=== PATIENT | male | born 1965 | race African-American/Black ===

== ENCOUNTER 2017-02-04 13:01 | Emergency (ER) | payer MEDICAID, OTHER ==
[~2017-02-04] VITALS: Ht 172.7 cm; Wt 75.0 kg
[2017-02-04] MEDS ORDERED: NITROGLYCERIN 0.4MG TABLET SL SL PRN (13:30)
[2017-02-04] MEDS ORDERED: ASPIRIN 81MG TABLET PO ONE (13:30)
[2017-02-04 14:14] LABS: BASOPHILS % 0.7 % (0.0-2.0); EOSINOPHILS % 1.8 % (0.0-5.0); HEMATOCRIT. 39.9 % (42.0-52.0); HEMOGLOBIN. 13.6 g/dL (14.0-18.0); LYMPHOCYTES % 15.1 % (20.0-50.0); MEAN CORPUSCULAR HEMOGLOBIN 33.1 pg (28.0-32.0); MEAN CORPUSCULAR VOLUME 96.9 fL (80.0-94.0); MEAN PLATELET VOLUME 6.8 fl (7.4-10.4); MONOCYTES % 7.1 % (2.0-8.0); NEUTROPHILS % 75.3 % (40.0-76.0); PLATELET 271 x1000/uL (130-400); RED BLOOD CELL COUNT 4.12 mill/uL (4.7-6.1); RED CELL DISTRIBUTION WIDTH 14.2 % (11.6-14.6)
[2017-02-04 14:19] LABS: PROTHROMBIN TIME 10.5 sec
[2017-02-04 14:26] LABS: CARBON DIOXIDE 25 mEq/L (21-32); CHLORIDE 105 mEq/L (98-107); ETHANOL BLOOD < 10 mg/dL
[2017-02-04 14:28] LABS: TROPONIN I < 0.02 ng/mL (0.00-0.04)
[2017-02-04 14:47] LABS: *AMPHETAMINES SCREEN URINE NEGATIVE (NEGATIVE); *BARBITURATES SCREEN URINE NEGATIVE (NEGATIVE); *BENZODIAZEPINES SCREEN URINE NEGATIVE (NEGATIVE); *COCAINE SCREEN URINE NEGATIVE (NEGATIVE); CANNABINOID URINE SCREEN PRESUMTIVE POSITIVE (NEGATIVE); METHADONE URINE SCREEN NEGATIVE (NEGATIVE); OPIATES URINE SCREEN NEGATIVE (NEGATIVE); PHENCYCLIDINE URINE SCREEN NEGATIVE (NEGATIVE)
[2017-02-04 17:30] VITALS: BP 147/79
== END 2017-02-04 18:21 | disposition home or self-care (01) ==
LOC: ER 13:01
DX: R07.89 Other chest pain (principal); Z85.810 Personal history of malignant neoplasm of tongue
CPT/HCPCS: 36415; 71010; 80053; 80305; 83880; 84484; 85025; 85610; 93005; 99285; G0482

== ENCOUNTER 2024-04-27 13:22 | Emergency (ER) | payer MEDICAID, OTHER ==
[~2024-04-27] VITALS: Ht 170.2 cm; Wt 73.0 kg
[2024-04-27 13:35] VITALS: O2SAT 98
[2024-04-27] MEDS ORDERED: IBUPROFEN 600MG TABLET PO ONE (14:00)
[2024-04-27] MEDS ORDERED: IBUP-2029 MT (15:17)
[2024-04-27] MEDS: IBUPROFEN 600MG TABLET PO NR (15:50)
[2024-04-27 15:54] VITALS: BP 122/67; PULSE 77; RESP 18; TEMP 36.94740; O2SAT 98
== END 2024-04-27 16:03 | disposition home or self-care (01) ==
LOC: ER 13:50
DX: S83.92XA Sprain of unspecified site of left knee, initial encounter (principal); W18.30XA Fall on same level, unspecified, initial encounter; Y93.9 Activity, unspecified; Y92.89 Other specified places as the place of occurrence of the external cause; Y99.8 Other external cause status
CPT/HCPCS: 73564; 99283